=== PATIENT | male | born 1985 | race Caucasian/White ===

== ENCOUNTER 2018-07-20 11:09 | Day surgery (SDC) | payer OTHER ==
[~2018-07-20] VITALS: Ht 165.1 cm; Wt 83.1 kg
[~2018-07-20 11:09] MED LIST: OXYACE5T PO
[2018-07-20] MEDS ORDERED: GABA300 (11:22)
== END 2018-07-20 12:20 | disposition home or self-care (01) ==
LOC: ORSCSDS 11:09
PROVIDERS: Anesthesiology
PROC: 3E0R33Z Introduction of Anti-inflammatory into Spinal Canal, Percutaneous Approach (ICD-10-PCS; principal; 2018-07-20 12:15)
DX: M54.12 Radiculopathy, cervical region (principal); M48.02 Spinal stenosis, cervical region; F17.200 Nicotine dependence, unspecified, uncomplicated; E66.9 Obesity, unspecified; Z68.30 Body mass index [BMI] 30.0-30.9, adult; Z79.899 Other long term (current) drug therapy
CPT/HCPCS: J1040; J2250; J3010; J7040

== ENCOUNTER 2021-09-16 07:45 | Day surgery (SDC) | payer OTHER ==
[~2021-09-16] VITALS: Ht 162.6 cm; Wt 84.6 kg
[~2021-09-16 07:45] MED LIST changes: +GABA300
--- NOTE | 2021-09-16 08:26 | NUR ---
09/16/21 0826 Sandra Simon BLOOD DRAWN AND ADDED ANTICOAG, DELIVERED TO OR AND SPUN DOWN.
--- NOTE | 2021-09-16 10:10 | NUR ---
09/16/21 1010 TREVER BENTLEY PLACED ON NON-REBREATHER IN PACU WITH DR. MCCURDY AT BEDSIDE.
--- NOTE | 2021-09-16 10:43 | NUR ---
09/16/21 1043 TREVER BENTLEY PAIN NOW 01/08. NORCO 5/325MG GIVEN PO PRIOR TO DC
== END 2021-09-16 11:12 | disposition home or self-care (01) ==
LOC: ORSCSDS 07:45
PROVIDERS: Orthopaedic Surgery
PROC: 0SBC4ZZ Excision of Right Knee Joint, Percutaneous Endoscopic Approach (ICD-10-PCS; principal; 2021-09-16 09:00)
DX: S83.241A Other tear of medial meniscus, current injury, right knee, initial encounter (principal); M65.9 Synovitis and tenosynovitis, unspecified
CPT/HCPCS: A9270; C1713; J0171; J0690; J1100; J2250; J2405; J2704; J2795; J3010; J7120

== ENCOUNTER 2023-10-27 06:11 | Day surgery (SDC) | payer OTHER ==
[~2023-10-27] VITALS: Ht 165.1 cm; Wt 85.8 kg
--- NOTE | 2023-10-27 08:22 | NUR ---
10/27/23 0822 Joseline Esteban HEAD ON DONUT, PILLOW UNDER KNEES, ARMS TUCKED AT SIDE, HEAD TAPED IN PLACE BY DR CUADRA GEL UNDER HEELS.
[2023-10-27 10:27] VITALS: BP 116/84
== END 2023-10-27 11:02 | disposition home or self-care (01) ==
LOC: ORSCSDS 06:11
PROVIDERS: Otolaryngology
PROC: 09U777Z Supplement Right Tympanic Membrane with Autologous Tissue Substitute, Via Natural or Artificial Opening (ICD-10-PCS; principal; 2023-10-27 07:30)
DX: H65.21 Chronic serous otitis media, right ear (principal); H69.93 Unspecified Eustachian tube disorder, bilateral; G47.33 Obstructive sleep apnea (adult) (pediatric)
CPT/HCPCS: A9270; J0171; J0330; J1100; J2250; J2405; J2704; J3010; J3301